=== PATIENT | female | born 1995 | race Caucasian/White ===

== ENCOUNTER 2018-07-01 05:20 | Inpatient (IN) | payer MEDICAID, SELFPAY ==
[2018-06-25 11:28] VITALS: BMI 39.8
[2018-07-01] VITALS (24 sets, daily range): BP systolic 98–128; BP diastolic 43–74; PULSE 90–116; RESP 14–18; TEMP 35.6–37.1; O2SAT 95–99; BMI 40.4
[2018-07-01 06:07] LABS: Absolute Lymphocyte Count 1.59 X10^3/ul (0.83-4.51); Basophil# 0.03 X10^3/uL; Basophil% 0.3 % (0-1); Eosinophil# 0.08 X10^3/uL; Eosinophils% 0.7 % (0-5); Hematocrit 38.3 % (37-47); Hemoglobin 12.2 g/dl (12.0-15.0); Lymphocyte # 1.59 X10^3/ul (4.0); Lymphocyte % 14.8 % (19-41); Mean Corp Hgb Conc 31.9 g/gl (32-36); Mean Corpuscular Hgb 28.9 pg (27.0-32.0); Mean Corpuscular Volume 90.8 fL (81-99); Mean Platelet Vol. 9.8 fl (6.2-12.0); Monocyte# 1.02 X10^3/uL; Monocyte% 9.5 % (0-10); Neutrophil # 7.96 X10^3/uL (2.7-7.7); Platelet Count 260 K/mm3 (150-450); RBC Distribution Width SD 63.6 fl (35.1-43.9); Red Blood Count 4.22 M/mm3 (4.2-5.4); White Blood Count 10.8 K/mm3 (4.4-11.0)
[2018-07-01 06:14] LABS: POSITIVE COUNT NO; POSITIVE DIFFERENTIAL NO; POSITIVE MORPHOLOGY NO
[2018-07-01] MEDS: Lactated Ringers 1,000 ML 999 ML IV (06:42)
[2018-07-01] MEDS: Sodium Citrate/Citric Acid 30 ML UDC PO (07:04)
[2018-07-01] MEDS: Lactated Ringers 1,000 ML 150 ML IV (07:15)
[2018-07-01] MEDS: Cefazolin 2 GM in 0.9% Normal Saline 100 ML IV (07:22)
[2018-07-01] MEDS: Oxytocin 30 units/NS 500 ml 30 UNITS/500 ML IV.SOLN 167 UNITS IV (07:56)
--- NOTE | 2018-07-01 08:25 | OP.PCM_ITS ---
Delivery Classification: Scheduled Final ASHLEY: 07/05/18 Final ASHLEY Source: US <20 weeks Gestational age: 39 Weeks and 3 Days Indications: Desires repeat- c/s at 39.3 wks if no spontaneous labor prior to that time Indications for : Repeat Elective Description of Procedure: Operative note: After informed consent was obtained the patient was taken to the operating room she was given spinal anesthesia. He was placed in the supine position. She was then prepped and draped in normal sterile fashion. Once spinal anesthesia was found to be adequate skin incision was made with a scalpel in a Pfannenstiel fashion. It was carried down to the underlying layer of the fascia. Fascia was then incised midline with scapel and extended laterally using curved casper. 2 straight Eunice's were placed in the superior aspect of the fascial edge and the rectus muscles were dissected off sharply. Attention was then turned to the inferior aspect where again the fascial edge was grasped with 2 straight Montville clamps tented up and the rectus muscle dissected off sharply. At this time the rectus muscles were grasped in the midline using 2 Allis clamps and scalpel was used to separate the rectus muscles. Using blunt force the peritoneum was then entered. thick adhesion noted on left side of uterus to peritoneum- taken down with bovie and secured hemostasis with free tie. Metzenbaums were used to take down the rectus muscles inferiorly as well as the peritoneum. At this time the vesicouterine peritoneum was identified. Metzenbaum scissors were used to create a bladder flap and then taken down digitally. Uterine incision was made in a low transverse fashion with the scalpel and then entered bluntly. Gentle opposing traction was placed to extend the uterine incision. The membranes were ruptured amniotic fluid clear. 's head was then brought to the uterine incision was delivered atraumatically followed by the rest 's body. At this time delayed cord clamping was performed mouth nose were suctioned. was then handed to the waiting nursery team. The placenta was then removed with gentle traction. The uterus was removed from the intra-abdominal cavity is wrapped in a moist lap. He was cleared of all clots and debris using a moist lap. Ring clamps were placed on the uterine angles. #1 Vicryl suture was used in a running locked fashion for the first layer. multiple figure of eight sutures placed for hemostasis. At this time then the uterus was placed back into abdominal cavity uterine incision was evaluated and noted to be of good hemostasis. Great hemostasis was appreciated at this time the uterine incision was again evaluated good hemostasis was appreciated. Prema placed over uterine incision; The peritoneum was grasped with Kellys. Peritoneum was reapproximated using #2 Vicryl suture in a running fashion. Muscle was then reapproximated using #2 Vicryl in an interrupted mattress suture fashion and prema placed. The fascia was then reapproximated using #1 Vicryl in a running fashion. Subcutaneous layer was evaluated and Bovie was used for any small oozing that was noted per #2-0 plain gut suture was then used to reapproximate the subcutaneous layer 4-0 Vicryl on a Joe needle was used to reapproximate the skin in a subcutaneous fashion. Dry sterile dressing was applied. Instrument lap needle count were correct ?2. Anticipated normal postoperative course for this patient. Amniotic Membrane Rupture Type: Artificial Amniotic Fluid Description: Clear Placenta Disposition: [facility] Cord Entanglement: None Cord Vessel Description: 3 Vessels Esitmated Blood Loss (ml): 800 Infant Gender: Male (1 minute): 9 (5 minute): 9 Delayed cord clamping: Yes Pre-op Antibiotic Given: Ancef 2 grams IV x1 Pt instructed on risks of surgery: Bleeding, Anesthesia Risks, Injury to surrounding structure(s) including bowel and bladder Complications: None - Admit VTE Documentation VTE Present on Admission: Yes VTE Mechan Device Prophylaxis: SCD's VTE Pharm Prophylaxis ordered?: Yes
[2018-07-01] MEDS: Ketorolac 30 MG/ML Syringe IV ×2 (13:54→19:55)
[2018-07-01] MEDS: Lactated Ringers 1,000 ML 100 ML IV (13:54)
[2018-07-01] MEDS: proMETHazine 25 MG/ML Syringe 12.5 MG IM (13:58)
[2018-07-02] VITALS (7 sets, daily range): BP systolic 98–115; BP diastolic 46–71; PULSE 108–118; RESP 16–24; TEMP 36.1–36.8; O2SAT 95–98
[2018-07-02] MEDS: Lactated Ringers 1,000 ML 100 ML IV (00:36)
[2018-07-02] MEDS: Ketorolac 30 MG/ML Syringe IV ×3 (02:24→15:41)
[2018-07-02] MEDS: oxyCODONE 5 MG Tablet PO ×5 (04:55→21:30)
[2018-07-02] MEDS: Enoxaparin 40 MG/0.4 ML Syringe SC (06:57)
--- NOTE | 2018-07-02 07:55 | PCM.PN.OB ---
Subjective: pt seen at bedside, doing well. pt reports good pain control. lochia mild. Denies CP, SOB, dizziness. graham in place. - Physical Exam General: Alert, Oriented x3 Abdomen: Soft, Non-Distended Extremities: No Calf Tenderness Vital Signs Temp Pulse Resp BP Pulse Ox 97.0 F L 114 H 22 H 98/46 L 95 07/02/18 05:00 07/02/18 05:00 07/02/18 05:00 07/02/18 05:00 07/02/18 05:00 Oxygen Delivery Method Room Air Weight: 103.646 kg Body Mass Index (BMI) 40.4 Intake and Output for Last 24 Hours 06/30/18 07/01/18 07/02/18 23:59 23:59 23:59 Intake Total 3260 / 3260 Output Total 450 / 450 375 / 375 Balance 2810 / 2810 -375 / -375 Medical Necessity - Tobacco Use Smoking Status: Never smoker Assessment/Plan POD#1, doing well routine care pain mgmt dc graham ambulation
[2018-07-02 08:24] LABS: Hematocrit 30.1 % (37-47); Hemoglobin 9.6 g/dl (12.0-15.0); Mean Corp Hgb Conc 31.9 g/gl (32-36); Mean Corpuscular Hgb 29.1 pg (27.0-32.0); Mean Corpuscular Volume 91.2 fL (81-99); Mean Platelet Vol. 9.3 fl (6.2-12.0); Platelet Count 191 K/mm3 (150-450); RBC Distribution Width CV 20.3 % (11.6-14.6); RBC Distribution Width SD 66.5 fl (35.1-43.9); White Blood Count 12.7 K/mm3 (4.4-11.0)
[2018-07-02 08:25] LABS: Scan Indicated on CBC? Y/N YES- FLAGS NOTED
[2018-07-02] MEDS: Senna/Docusate Sodium 1 Tablet PO (08:29)
[2018-07-02] MEDS: 0.9% NaCl Peripheral Flush Adult/Peds IV ×2 (08:29→15:41)
[2018-07-02] MEDS: Prenatal Vits Tablet 1 TABLET PO (13:06)
[2018-07-02] MEDS: Ibuprofen 600 MG Tablet PO (19:55)
[2018-07-03] MEDS: Ibuprofen 600 MG Tablet PO ×2 (02:05→13:52)
[2018-07-03] MEDS: oxyCODONE 5 MG Tablet PO ×4 (02:05→15:57)
[2018-07-03 02:11] VITALS: BP 117/68; PULSE 77; RESP 18; TEMP 36.5; O2SAT 99
[2018-07-03] MEDS: Enoxaparin 40 MG/0.4 ML Syringe SC (05:54)
--- NOTE | 2018-07-03 08:19 | PN.OBGYN_ITS ---
Subjective: pt seen in [facility] with - doing well. pt reports good pain control. lochia mild. denies CP, SOB, dizziness or palpitations. Pt reports passing flatus. pt requesting dc home - Physical Exam General: Alert, Oriented x3 Abdomen: Soft, Non-Distended, Passing Flatus, - - fundus firm. incision site dressing dry and intact Extremities: No Calf Tenderness Vital Signs Temp Pulse Resp BP Pulse Ox 97.7 F L 77 18 117/68 99 07/03/18 02:11 07/03/18 02:11 07/03/18 02:11 07/03/18 02:11 07/03/18 02:11 Oxygen Delivery Method Room Air Weight: 103.646 kg Body Mass Index (BMI) 40.4 Intake and Output for Last 24 Hours 07/01/18 07/02/18 07/03/18 23:59 23:59 23:59 Intake Total 3260 / 3260 Output Total 450 / 450 1375 / 1375 Balance 2810 / 2810 -1375 / -1375 Laboratory Tests Past 24 Hrs 07/02/18 08:15 WBC 12.7 H RBC 3.30 L Hgb 9.6 L Hct 30.1 L MCV 91.2 MCH 29.1 MCHC 31.9 L RDW 20.3 H RDW Differential 66.5 H Plt Count 191 MPV 9.3 Differential Comment Medical Necessity - Tobacco Use Smoking Status: Never smoker Assessment/Plan POD#2, doing well routine care pain mgmt ambulation dc home
[2018-07-03 08:22] VITALS: BP 111/53; PULSE 91; RESP 20; TEMP 35.9
--- NOTE | 2018-07-03 08:22 | DCINST_ITS ---
Discharge Diet: No Restrictions Discharge Activity: Return to Normal Activity, May Not Drive - for 2 weeks, May not drive while taking narcotic pain medications., May Shower, May Take a Tub Bath - in 7 days. May resume sexual activity in: 4-6 weeks Lifting Restrictions: 20 pounds Additional Activity Instructions:: Nothing in the vagina for 4-6 weeks. You may return to work/school in 6 weeks. Call your doctor if your incision/area has: Continuous Slow Oozing, Sudden Increased Bleeding, Increased Pain/ Swelling, Increased Redness, Foul Smelling Discharge Call your doctor if you observe: Fever of 101 or Higher, Using more than one pad per hour - for 2 hours Suture Line Care: Avoid Pulling/Pushing, Avoid Pinching/Bending Cleanse incision/area with: Keep Dressing Clean & Dry Additional Instructions: If you experience any of the following, contact your healthcare provider. * Bleeding that soaks a pad every hour for 2 hours * Fever 100.4 or higher * Unrelieved incision or abdominal pain * Swelling, redness, discharge or bleeding from your incision or episiotomy site * Your incision begins to separate * Problems urinating (including inability to urinate or burning while urinating). * Visual changes * Severe headache * Flu-like symptoms * Pain or redness in one of both of your breasts * Pain, warmth, tenderness or swelling in your legs, especially the calf area * Frequent nausea and vomiting * Symptoms of depression or anxiety If you experience any of the following, call 911 or go to the nearest Emergency Room. * Chest pain * Problems breathing * Seizure activity * Partial or complete paralysis of a body part, slurred speech, weakness or drooping of the face, or a sudden inability to walk or hold your balance Allergies/Adverse Reactions: Allergies No Known Allergies Allergy (Verified 07/01/18 06:39) Medications to take at Discharge Iron 325 mg PO DAILY 06/25/18 Tablet 1 tab PO DAILY 06/25/18 Ibuprofen [Motrin] 600 mg PO Q6H PRN PRN #60 tablet 07/03/18 Oxycodone HCl/Acetaminophen [Percocet 5/325] 1 - 2 tablet PO Q4H PRN PRN 7 Days #20 tablet 07/03/18 Vits [Prenatabs FA ] 1 tablet PO DAILY@1200 tablet 07/03/18 Senna/Docusate Sodium [Senokot-S] 1 - 2 tab PO DAILY PRN #30 tablet 07/03/18 SimETHICONE [Mylicon] 80 mg PO PCHS PRN #30 tablet 07/03/18 The following prescriptions were given: Oxycodone HCl/Acetaminophen [Percocet 5/325] 1 - 2 tablet PO Q4H PRN PRN 7 Days #20 tablet PRN Reason: Pain Ibuprofen [Motrin] 600 mg PO Q6H PRN PRN #60 tablet PRN Reason: Mild Pain (-09/29) Senna/Docusate Sodium [Senokot-S] 1 - 2 tab PO DAILY PRN #30 tablet PRN Reason: Constipation SimETHICONE [Mylicon] 80 mg PO PCHS PRN #30 tablet PRN Reason: Indigestion/stomach pain Follow-Up: Call to make an appointment with your doctor for an incision check in 1-2 weeks. You will also need a 6 week post- follow up appointment. Test results from this visit will be discussed in further detail at your follow- up appointment, if applicable. Please Follow Up With: Adele Recinos MD - Call to make an appointment for an incision check in 1-2 [phone] When: You will need a post- check in 6 weeks. Primary Care Physician: Care Physician,No Primary [Primary Care Provider] -
[2018-07-03] MEDS: Prenatal Vits Tablet 1 TABLET PO (11:58)
[2018-07-03 14:15] VITALS: BP 112/67; PULSE 92; RESP 18; TEMP 36.9
[2018-07-03 15:27] VITALS: BP 112/67; PULSE 92; RESP 18; TEMP 36.9
--- NOTE | 2018-07-08 18:32 | NURSING ---
follow up phone call done. pt states she has had a headache since going home, informed her of the risk associated with high bp and adives getting her cp checked and letting her dr know of her symptoms sadie
== END 2018-07-03 16:15 | disposition home or self-care (01) | DRG 540 ==
PROVIDERS: Admitting Provider Obstetrics & Gynecology; Referring Provider Obstetrics & Gynecology; Visit Provider Obstetrics & Gynecology
PROC: 10D00Z1 Extraction of Products of Conception, Low, Open Approach (ICD-10-PCS; CPT 59514; principal; 2018-07-01 07:15)
DX: O34.219 Maternal care for unspecified type scar from previous cesarean delivery (principal); O34.03 Maternal care for unspecified congenital malformation of uterus, third trimester; Q51.3 Bicornate uterus; O99.02 Anemia complicating childbirth; D64.9 Anemia, unspecified; O99.344 Other mental disorders complicating childbirth; F41.9 Anxiety disorder, unspecified; O99.62 Diseases of the digestive system complicating childbirth; K21.9 Gastro-esophageal reflux disease without esophagitis; Z3A.39 39 weeks gestation of pregnancy; Z37.0 Single live birth; Z87.59 Personal history of other complications of pregnancy, childbirth and the puerperium
CPT/HCPCS: 85025; 85027; 86850; 86900; 99218; J7120; A4216; G0378; J2405

== ENCOUNTER 2022-01-07 22:19 | Emergency (ER) | payer MEDICAID, SELFPAY ==
[2022-01-07 22:21] VITALS: BP 141/74; PULSE 114; RESP 18; TEMP 36.2; O2SAT 93; BMI 31.8
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
[2022-01-07 23:28] LABS: Absolute Lymphocyte Count 2.69 X10^3/uL (0.83-4.51); Absolute Neutrophil Count 5.5 X10^3/uL (2.0-7.7); Basophil% 1.1 % (0-1); Eosinophil# 0.07 X10^3/uL; Eosinophils% 0.7 % (0-5); Hematocrit 39.2 % (37-47); Lymphocyte # 2.69 X10^3/ul (0.83-4.51); Lymphocyte % 28.6 % (19-41); Mean Corp Hgb Conc 33.2 g/dL (32-36); Mean Corpuscular Volume 90.5 fL (81-99); Monocyte# 0.94 X10^3/uL; NRBC Flagged by Analyzer 0 % (0-5); Neutrophil # 5.54 X10^3/uL (2.7-7.7); Neutrophil % 58.8 % (47-70); Platelet Count 268 K/mm3 (150-450); RBC Distribution Width CV 12.1 % (11.6-14.6); RBC Distribution Width SD 40.2 fl (35.1-43.9); Red Blood Count 4.33 M/mm3 (4.2-5.4); White Blood Count 9.4 K/mm3 (4.4-11.0)
[2022-01-07 23:39] LABS: ALB/GLOB Ratio 1.1 RATIO (0.9-2.4); AST(SGOT) 184 U/L (15-37); Alanine Aminotransfer ALT/SGPT 279 U/L (13-56); Albumin, Serum 4.2 g/dL (3.2-5.0); Alkaline Phosphatase 67 U/L (45-117); Anion Gap 9 (5-15); BUN 12 mg/dL (7-18); BUN/Creat Ratio 11.7 RATIO (10-20); Calcium,Total 8.8 mg/dL (8.5-10.1); Chloride 106 mmol/L (98-107); Creatinine, Serum 1.03 mg/dL (0.55-1.02); EST Glomerular Filtration Rate 69 mL/min (>60); Est Glom Filt Rate - Afr Amer 83 mL/min (>60); Estimated Creatinine Clearance 68.47 ml/min; Globulin 3.7 g/dL (2.2-4.2); Glucose 117 mg/dL (74-106); Potassium 4.1 mmol/L (3.5-5.1); Protein, Total 7.9 g/dL (6.4-8.2); Sodium Level 137 mmol/L (136-145)
[2022-01-07 23:56] LABS: Internal QC Validated? YES +Cl - CLEAR BKGD; Pregnancy, Serum, hCG Quali. NEGATIVE Negative
[2022-01-08 01:03] LABS: Mucous, Urine 0 SEEN /hpf (<or=2+); Red Blood Cells-Urine 0 SEEN /hpf (0-5); White Blood Cells 0 SEEN /hpf (0-5)
[2022-01-08 01:24] LABS: Color, Urine Yellow (Yellow); Glucose, Dipstick Normal (Normal); Ketone-Dipstick Negative (Negative); Leukocyte Esterase-Dipstick Negative /ul (Negative); Nitrite-Dipstick Negative (Negative); Occult Blood-Urine Negative /ul (Negative); Protein-Dipstick Negative (Negative); Specific Gravity, Urine 1.015 (1.002-1.030); Urine Bilirubin Dipstick Negative (Negative); Urine Clarity Clear (Clear); Urine Urobilinogen Normal (Normal)
[2022-01-08 01:34] LABS: Bacteria RARE /hpf (None Seen); Squamous Epithelial Cells - UA 0-5 SEEN /hpf (5-10)
[2022-01-08 01:36] LABS: Amphetamine Urine VISTA NEGATIVE (<1000 ng/mL); Barbiturate Urine VISTA NEGATIVE (< 200 ng/mL); Benzodiazepine Urine VISTA NEGATIVE (< 200 ng/mL); Cocaine Urine VISTA NEGATIVE (< 300 ng/mL); Ecstacy Urine VISTA NEGATIVE (< 500 ng/mL); Methadone Urine VISTA NEGATIVE (< 300 ng/mL); PCP Urine VISTA NEGATIVE (< 25 ng/mL); THC Urine VISTA NEGATIVE (< 50 ng/mL); Vista UDS pH Range 5
== END 2022-01-08 04:20 | disposition home or self-care (01) ==
PROVIDERS: Emergency Provider Emergency Medicine; Visit Provider Emergency Medicine
DX: F10.129 Alcohol abuse with intoxication, unspecified (principal); R10.30 Lower abdominal pain, unspecified; F17.290 Nicotine dependence, other tobacco product, uncomplicated
CPT/HCPCS: 80053; 80307; 81001; 82077; 84703; 85025; 99283

== ENCOUNTER 2022-01-07 23:45 | Outpatient (REF) | payer SELFPAY | END 2022-01-08 23:59 | disposition home or self-care (01) | LOC: ED 23:45 | DX: Z04.41 Encounter for examination and observation following alleged adult rape (principal) ==